=== PATIENT | female | born 1950 | race African-American/Black ===

== ENCOUNTER → 2021-08-04 | Outpatient (CLI) | payer MEDICARE | END | disposition home or self-care (01) | LOC: LAB 12:27 | PROVIDERS: ATTEND Neurological Surgery | DX: Z01.812 Encounter for preprocedural laboratory examination (principal); Z20.822 Contact with and (suspected) exposure to COVID-19 | CPT/HCPCS: 87426 ==

== ENCOUNTER 2021-09-21 07:16 | Inpatient (IN) | payer MEDICARE ==
[~2021-09-21] VITALS: Ht 167.6 cm; Wt 64.0 kg
[2021-09-21] VITALS (36 sets, daily range): BP systolic 94–162; BP diastolic 16–85
[~2021-09-21 07:16] MED LIST: LACTATED RINGERS 1,000 ML IV SCH
[2021-09-21] MEDS ORDERED: LIDOCAINE HCL/EPINEPHRINE 1%-EPI 1:100,000 20 ML VIAL ONE (07:45)
[2021-09-21] MEDS ORDERED: THROMBIN (BOVINE) 5000 UNITS/VIAL TOP ONE (07:45)
[2021-09-21] MEDS ORDERED: GENTAMICIN SULF 40MG/ML 2ML VIAL ONE (07:45)
[2021-09-21 08:08] LABS: BASOPHILS % 0.4 % (0.0-2.0); EOSINOPHILS % 2.5 % (0.0-5.0); HEMATOCRIT. 37.9 % (36.0-48.0); HEMOGLOBIN. 12.3 g/dL (12.0-16.0); LYMPHOCYTES % 22.5 % (20.0-50.0); MEAN CORPUSCULAR HEMOGLOBIN 27.2 pg (28.0-32.0); MEAN CORPUSCULAR VOLUME 83.9 fL (81.0-99.0); MEAN PLATELET VOLUME 7.7 fl (7.4-10.4); MONOCYTES % 5.7 % (2.0-8.0); NEUTROPHILS % 68.9 % (40.0-76.0); PLATELET 265 x1000/uL (130-400); RED BLOOD CELL COUNT 4.52 mill/uL (4.2-5.4); RED CELL DISTRIBUTION WIDTH 15.8 % (11.6-14.6)
[2021-09-21 08:11] LABS: CLARITY URINE CLEAR (CLEAR); COLOR URINE YELLOW (YELLOW); KETONES URINE NEGATIVE (NEGATIVE); LEUKOCYTE ESTERASE URINE NEGATIVE (NEGATIVE); NITRITE URINE NEGATIVE (NEGATIVE); OCCULT BLOOD URINE NEGATIVE (NEGATIVE); PROTEIN URINE NEGATIVE (NEGATIVE); SPECIFIC GRAVITY URINE 1.015 (1.005-1.030); UROBILINOGEN URINE 0.2 E.U./dL (0.2-1.0)
[2021-09-21 08:13] LABS: CHLORIDE 109 mEq/L (98-107)
[2021-09-21 08:16] LABS: PARTIAL THROMBOPLASTIN TIME 34.2 sec (23.4-31.0); PROTHROMBIN TIME 10.9 sec (9.6-11.0)
[2021-09-21] MEDS ORDERED: ONDANSETRON HCL 4MG/2ML INJ IV PRN ×2 (09:45→11:00)
[2021-09-21] MEDS ORDERED: HYDROMORPHONE HCL/PF 2MG/ML CPJ IV PRN ×2 (09:45→11:00)
[2021-09-21] MEDS ORDERED: MEPERIDINE HCL/PF 25MG/ML CPJ IV PRN ×2 (09:45→11:00)
[2021-09-21] MEDS ORDERED: LABETALOL 5MG/ML SYR 20 MG/4 ML SYRINGE IV PRN ×2 (09:45→11:00)
[2021-09-21] MEDS ORDERED: NALOXONE HCL 0.4MG/ML VIAL IV PRN (10:00)
[2021-09-21] MEDS ORDERED: NEOSTIGMINE METHYLSULFATE 1MG/ML 10 ML VIAL ONE ×2 (10:25→11:34)
[2021-09-21] MEDS ORDERED: GLYCOPYRROLATE 0.2 MG/ML 2ML VIAL ONE ×2 (10:25→11:39)
[2021-09-21] MEDS ORDERED: MIDAZOLAM HCL 2 MG/2 ML VIAL ONE (10:26)
[2021-09-21] MEDS ORDERED: FENTANYL CITRATE/PF 50MCG/ML 2ML VIAL ONE (10:26)
[2021-09-21] MEDS ORDERED: ROCURONIUM BROMIDE 10MG/ML VIAL 5ML IV ONE ×2 (10:34→10:35)
[2021-09-21] MEDS ORDERED: PROPOFOL 10MG/ML 100ML 100 ML IV ONE (10:36)
[2021-09-21] MEDS ORDERED: PROPOFOL 200MG/20ML VIAL IV ONE (10:37)
[2021-09-21] MEDS ORDERED: ALBU18HF2 IH (10:40)
[2021-09-21] MEDS ORDERED: [UNRECOGNIZED DRUG - CODE] PO (11:32)
[2021-09-21] MEDS ORDERED: MAGN500C4 PO (11:32)
[2021-09-21] MEDS ORDERED: ALOE25CA2 PO (11:32)
[2021-09-21] MEDS ORDERED: [UNRECOGNIZED DRUG - REMARK] PO (11:32)
[2021-09-21] MEDS ORDERED: CALC-900 PO (11:32)
[2021-09-21] MEDS ORDERED: ASCO-339 PO (11:32)
[2021-09-21] MEDS ORDERED: CALC625T66 PO (11:32)
[2021-09-21] MEDS ORDERED: MILK500C PO (11:32)
[2021-09-21] MEDS ORDERED: VITA400C71 PO (11:32)
[2021-09-21] MEDS ORDERED: ZINC50TA69 PO (11:32)
[2021-09-21] MEDS ORDERED: elderberry PO (11:32)
[2021-09-21] MEDS ORDERED: NICARDIPINE 100 MG in SODIUM CHLORIDE 0.9% 60 ML IV PRN (12:45)
[2021-09-21] MEDS ORDERED: IPRATROPIUM/ALBUTEROL 0.5-3(2.5)MG/3ML NEB HHN PRN ×2 (13:00→16:45)
[2021-09-21] MEDS ORDERED: ACETAMINOPHEN 325MG TABLET PO PRN (13:00)
[2021-09-21] MEDS: DEXAMETHASONE 4MG/ML 1ML VIAL IV SCH ×2 (13:17→17:09)
[2021-09-21] MEDS: DEXT 5%/LACTATED RINGERS 1,000 ML IV SCH ×2 (13:18→22:09)
[2021-09-21] MEDS ORDERED: CEFAZOLIN SODIUM 1000MG/VIAL IV SCH (14:00)
[2021-09-21] MEDS: CEFAZOLIN 1000MG PREMIX 50 ML IV SCH ×2 (14:54→22:08)
[2021-09-21] MEDS: HYDRALAZINE HCL 50MG TABLET PO SCH ×2 (14:54→22:00)
[2021-09-21] MEDS: MORPHINE SULFATE 4 MG/ML CPJ (NOT FOR IM USE) IV PRN (17:09)
[2021-09-21] MEDS: AMLODIPINE 5MG TABLET PO SCH (21:00)
[2021-09-22] VITALS (27 sets, daily range): BP systolic 84–136; BP diastolic 29–95
[2021-09-22] MEDS: DEXAMETHASONE 4MG/ML 1ML VIAL IV SCH ×3 (00:36→12:36)
[2021-09-22 05:38] LABS: HEMATOCRIT. 37.7 % (36.0-48.0); HEMOGLOBIN. 12.2 g/dL (12.0-16.0); MEAN CORPUSCULAR HEMOGLOBIN 27.4 pg (28.0-32.0); MEAN CORPUSCULAR VOLUME 84.8 fL (81.0-99.0); MEAN PLATELET VOLUME 7.8 fl (7.4-10.4); PLATELET 276 x1000/uL (130-400); RED BLOOD CELL COUNT 4.45 mill/uL (4.2-5.4); RED CELL DISTRIBUTION WIDTH 15.5 % (11.6-14.6)
[2021-09-22] MEDS: CEFAZOLIN 1000MG PREMIX 50 ML IV SCH (06:26)
[2021-09-22] MEDS: HYDRALAZINE HCL 50MG TABLET PO SCH (06:26)
[2021-09-22] MEDS: DEXT 5%/LACTATED RINGERS 1,000 ML IV SCH ×2 (06:27→17:15)
[2021-09-22 06:30] LABS: CHLORIDE 108 mEq/L (98-107)
[2021-09-22] MEDS: MAGNESIUM OXIDE 400MG TABLET PO SCH (08:37)
[2021-09-22] MEDS: AMLODIPINE 5MG TABLET PO SCH (08:37)
[2021-09-22 08:51] LABS: PLATELET ESTIMATE NORMAL
[2021-09-22] MEDS: AMLODIPINE 2.5MG TABLET PO SCH (21:00)
[2021-09-23] VITALS (10 sets, daily range): BP systolic 107–141; BP diastolic 64–77
[2021-09-23] MEDS: DEXT 5%/LACTATED RINGERS 1,000 ML IV SCH ×2 (01:45→06:47)
[2021-09-23] MEDS: MORPHINE SULFATE 4 MG/ML CPJ (NOT FOR IM USE) IV PRN (03:46)
[2021-09-23] MEDS: AMLODIPINE 2.5MG TABLET PO SCH (08:50)
[2021-09-23] MEDS: MAGNESIUM OXIDE 400MG TABLET PO SCH (08:51)
== END 2021-09-23 12:00 | disposition home health service (06) | DRG 471 ==
LOC: OR 07:16 → MICUNO 07:17 → 8WST 09-23 06:08
PROVIDERS: ADMIT Neurological Surgery; ATTEND Neurological Surgery
PROC: 0RG10A0 Fusion of Cervical Vertebral Joint with Interbody Fusion Device, Anterior Approach, Anterior Column, Open Approach (ICD-10-PCS; principal; 2021-09-21)
PROC: 0RB30ZZ Excision of Cervical Vertebral Disc, Open Approach (ICD-10-PCS; 2021-09-21)
DX: M48.02 Spinal stenosis, cervical region (principal); G82.50 Quadriplegia, unspecified; M50.01 Cervical disc disorder with myelopathy, high cervical region; E05.90 Thyrotoxicosis, unspecified without thyrotoxic crisis or storm; I10 Essential (primary) hypertension; J45.909 Unspecified asthma, uncomplicated; M25.78 Osteophyte, vertebrae; R26.89 Other abnormalities of gait and mobility; Z20.822 Contact with and (suspected) exposure to COVID-19; R00.1 Bradycardia, unspecified; M50.11 Cervical disc disorder with radiculopathy, high cervical region; Z85.3 Personal history of malignant neoplasm of breast; Z88.6 Allergy status to analgesic agent; Z88.8 Allergy status to other drugs, medicaments and biological substances; Z91.041 Radiographic dye allergy status
CPT/HCPCS: 36415; 72040; 72141; 76000; 80048; 81003; 83735; 84443; 85025; 86850; 86900; 87426; 88311; 93005; 95925; 95926; 95928; 95929; 97116; 97162; 97166; 97530; 97535; C1713; C9803; J0690; J1100; J1170; J1580; J2250; J2270; J2704; J2710; J3010; J3490; J7121; L0172; C1762